=== PATIENT | male | born 1960 | race African-American/Black ===

== ENCOUNTER → 2016-05-26 | Outpatient (CLI) | payer OTHER ==
[2014-01-01 09:45] VITALS: BP 172/92
[~2016-05-26] MED LIST: DIAZ5TAB4 PO; HYDR-2762 PO; MULT1TAB52 PO
[2016-05-26] MEDS: GADOBUTROL 7.5 MMOL/7.5 ML VIAL IV ONE (10:36)
--- NOTE | 2016-05-26 10:55 | RAD ---
PROCEDURE MRI lumbar spine without and with contrast. HISTORY Low back pain with left leg radiculopathy for 2 months, post fall, previous fusion TECHNIQUE Multiplanar, multi sequential, pre and post contrast MR imaging was performed of the lumbar spine. Contrast: 7.5 cc Gadavist COMPARISON None FINDINGS Lumbar vertebral body stature and AP alignment are maintained. There is interbody graft at L4-5. There has been posterolateral fusion at L4-5 with bilateral pedicle screws stabilizing vertical rods. Exam does not accurately evaluate integrity of hardware. Conus terminates at L1. There is no nodular enhancement of the conus or cauda equina, no enhancement in the intervertebral disc spaces. There is mild to moderate degenerative disc disease L2-3, minimally at L3-4 and L1-2. There is probable retroaortic left renal vein, not fully included. L2-3: There is negligible posterior bulge. There is posterior annular tear. There is mild facet hypertrophic change. There is mild lateral recess stenosis bilaterally. Neural foramina are adequate. L3-4: There is negligible disc osteophyte complex and bulge. There is mild facet hypertrophic change. There is very mild narrowing of the far lateral recesses bilaterally. There is mild narrowing of the right neural foramen, left neural foramen adequate. L4-5: There has been posterior decompression, spinal canal widely patent. Neural foramina are adequate. L5-S1: There is negligible disc osteophyte complex greater in the inferior left neural foramen. Spinal canal is adequate. There is likely mild to moderate narrowing of the left neural foramen, right neural foramen adequate. IMPRESSION 1. There is mild lateral recess stenosis bilaterally at L2-3, to a lesser degree at L3-4. There has been posterolateral fusion and posterior decompression at L4-5, interbody graft at this level. 2. There is mild to moderate narrowing of the left L5-S1 neural foramen, mild narrowing on the right at L3-4. 3. There is mild to moderate degenerative disc disease at L2-3, minimally at L1-2 and L3-4. Electronically signed by: Jesse Mazariegos MD (May 26, 2016 10:54:00)
== END | disposition home or self-care (01) ==
LOC: MRI 09:44
PROVIDERS: ATTEND Family Medicine
DX: M54.40 Lumbago with sciatica, unspecified side (principal); M51.36 Other intervertebral disc degeneration, lumbar region; M48.07 Spinal stenosis, lumbosacral region; Z98.1 Arthrodesis status; F17.200 Nicotine dependence, unspecified, uncomplicated
CPT/HCPCS: 72158; A9585

== ENCOUNTER → 2016-06-24 | Outpatient (CLI) | payer MEDICARE, OTHER ==
[2014-01-01 09:45] VITALS: BP 172/92
[~2016-06-24] MED LIST changes: +IOHEXOL 180 MG/ML 10 ML VIAL. ONE; +TRAV5DRO EACHEYE; +methylPREDNISolone ACETATE 40 MG/ML VIAL. ONE; +methylPREDNISolone ACETATE 80 MG/ML VIAL. ONE
--- NOTE | 2016-06-25 05:04 | PAIN ---
DATE OF SERVICE: 06/24/2016 INITIAL CONSULTATION FOR PAIN CLINIC CHIEF COMPLAINT: Low back and right lower extremity pain. HISTORY OF PRESENT ILLNESS: This is a 56-year-old male who presents with history of pain in the low back, right lower extremity across the low back for many years, about 7 years or so, worse over the past 6 months without any recent injury or action that he is aware of. The patient has had previous lumbar fusion at L4-L5 in 2003, reports that he never recovered from the pain even after the surgery. The patient reports now that his pain is constant, sharp, stabbing, shooting, radiating to the right leg, intermittent in intensity, but always present, aching, cramping, changing with activity. The patient reports he actually feels better standing than sitting and is not able to sleep all at night because of the pain is constant with tossing and turning. The patient reports pain across the low back into the right posterior gluteus, posterior thigh, posterior knee, posterior calf, causing cramping as well as some on the anterior calf and anterior thigh, but mostly posteriorly. The patient reports it awakens him from sleep at least 3 times at night. He constantly tosses and turns. He reports that it affects his bowel and bladder control, but no incontinence. He reports he has some increased urgency. The patient reports it affects his ability to walk significantly unless he is not using any assistive devices to ambulate at this time. The patient has had physical therapy. He has had previous injections in his back as well as doing exercise, which he is currently doing right now, which is not helping the pain significantly. The patient has been taking diazepam, gabapentin and hydrocodone. Gabapentin and hydrocodone did decreased the pain, but only by about 20-30% by his estimation. The patient did have an MRI scan of the lumbar spine dated 05/26/2016, showing a mild lateral recess stenosis bilaterally at L2-L3 and a lesser degree at L3-L4 with posterior lateral fusion and posterior decompression at L4-L5, interbody graft at this level, mild to moderate narrowing at the left L5-S1 neural foramen and narrowing at the right at L3-L4, mild to moderate degenerative disk disease at L2-L3 and minimally at L1-L2 and L3-L4. The patient rates his disability range 0-10, 10 being the worst, is a 10 with family and home responsibilities, recreation, social activity, occupation, 8 with sexual behavior and self-care and 0 with life support activities. PAST MEDICAL HISTORY: Significant for arthritis, hiatal hernia, cigarette smoking about less than 1 pack a day for 20 years. PREVIOUS SURGERY: Include lumbar fusion and instrumentation in 2003. CURRENT MEDICATIONS: Include hydrocodone, Travatan and diazepam. ALLERGIES: THE PATIENT IS ALLERGIC TO PENICILLIN. FAMILY HISTORY: Significant for hypertension, diabetes, lupus and cancers. SOCIAL HISTORY: The patient does not drink, does smoke less than 1 pack a day for the past 20 years of cigarettes, is and lives with his spouse and 2 children at home, lives locally in [place], [place], is currently is disabled secondary to his back pain. REVIEW OF SYSTEMS: The patient's review of systems is positive for those items mentioned in history of present illness. All systems reviewed and otherwise negative. It is complete, full and well documented on the patient's chart. PHYSICAL EXAMINATION: VITAL SIGNS: The patient's blood pressure 111/64, pulse 72, respirations 18, temperature is 97.8 degrees Fahrenheit, height 6 feet 3 inches, weighs 171 pounds. GENERAL: The patient is awake, alert, oriented, appropriate, very pleasant demeanor. HEENT: Head shows normocephalic, atraumatic. Extraocular movements are intact, symmetrical. Oral cavity, mucous membranes are moist and pink. Dentition is intact. NECK: Shows anterior throat supple without palpable lymphadenopathy noted. Swallow reflex is symmetrical. CHEST: Shows normal on inspection. Breath sounds clear to auscultation bilaterally. HEART: Shows S1 and S2 clear. ABDOMEN: Flat, soft, nontender, nondistended. No palpable organomegaly. No rebound or guarding demonstrated. BACK: Shows spine grossly in the midline. Normal appearing thoracic kyphosis, some significant flattening noted in the lumbar lordotic curvature with well-healed surgical scar in the midline. Lumbar paraspinous musculature shows symmetrical inspection with palpation is very firm, very tender throughout the upper, middle and lower distribution of paraspinous muscles bilaterally, but appears symmetrical, no significant tenderness over the spinous processes, sacrum or sacroiliac regions. The patient has limited rotational motion of the lumbar spine, but rotates to 10 degrees right and left as well as extension 10 degrees, forward flexion at approximately 35 degrees without limitation from pain but with significant limitation ____ unable to forward flex secondary to low back immobility. Lower extremities showed deep tendon reflexes at 1+ in the patellar and tendo calcaneus tendons are equal. Motor exam is approximately 4 on a scale of 5 dorsiflexion and extension, but symmetrical, as is quadriceps and hamstring flexion 4/5 and equal. Peripheral pulses are 1+ posterior tibial and dorsalis pedis pulses. No peripheral edema is noted. No clubbing, no cyanosis. Lower extremities are warm and dry to touch, equal in color and appearance. Straight leg raise noted to be positive on the right at about 35 degrees, left is negative. Gaenslen's and Wander's maneuvers are grossly negative bilaterally. The patient is able to stand, has difficulty raising from a sitting to a standing position with significant pain across the low back into the right posterior gluteus and thigh. The patient is walking with a shuffling gait, appears to favor the right lower extremity with a significant limp as well, again not using any assistive devices to ambulate such as canes or walkers. IMPRESSION: This is a 56-year-old male with: 1. Long history of low back, right lower extremity pain status post lumbar instrumentation fusion at L4-L5 with interbody fusion as well. 2. MRI scan of lumbar spine as noted. 3. Cigarette smoking. 4. Arthritis. PLAN: Options were discussed with the patient including conservative medical management, physical therapy, interventional techniques. We will send him for physical therapy with water pool therapy as he has not performed this before and I feel this may be significantly beneficial for him. Also discussed a caudal approach epidural steroid injection and he would like to proceed with that today. We described the procedure using description as well as anatomical models. Risks were then discussed including, but not limited to bleeding, infection, possibility of epidural hematoma and subsequent neurologic compromise, dural puncture, headaches, spinal cord and/or nerve damage, side effects of steroid medication and poor results regarding pain control. The patient understands and wishes to proceed. The patient will return to clinic in approximately 2 weeks for followup. He was counseled to return appointment, activity level and side effects to be aware of. DIAGNOSES: Lumbar radiculopathy with lumbar degenerative disk disease, spinal stenosis and post-lumbar laminectomy syndrome. PROCEDURE: Caudal approach epidural steroid injection using C-arm fluoroscopic guidance under sterile prep and drape using local anesthetic. Medication injected is 120 mg Depo-Medrol plus 10 mL preservative-free normal saline and 2 mL Isovue for contrast. CONDITION AT DISCHARGE: Stable. The patient tolerated procedure well, had no complications. DANO ORTIZ MD DR: SHANNON/deonte JOB#: [id number] / [id number]
== END | disposition home or self-care (01) ==
LOC: PNCL 10:09
PROVIDERS: ATTEND Anesthesiology
DX: M51.16 Intervertebral disc disorders with radiculopathy, lumbar region (principal); M48.06 Spinal stenosis, lumbar region; M96.1 Postlaminectomy syndrome, not elsewhere classified; M19.90 Unspecified osteoarthritis, unspecified site; F17.200 Nicotine dependence, unspecified, uncomplicated; Z72.89 Other problems related to lifestyle
CPT/HCPCS: 62323; J1030; J1040

== ENCOUNTER → 2016-09-16 | Outpatient (CLI) | payer OTHER ==
[2014-01-01 09:45] VITALS: BP 172/92
[~2016-09-16] MED LIST changes: -IOHEXOL 180 MG/ML 10 ML VIAL. ONE; -methylPREDNISolone ACETATE 40 MG/ML VIAL. ONE; -methylPREDNISolone ACETATE 80 MG/ML VIAL. ONE
[2016-09-16] MEDS: IOHEXOL 180 MG/ML 10 ML VIAL. IT ONE (09:45)
[2016-09-16] MEDS: LIDOCAINE 1% Multi-Dose 20 ML VIAL. ID ONE (09:45)
--- NOTE | 2016-09-16 10:49 | KCIC ---
EXAM: 1. CT myelography lumbar spine with intrathecal contrast. 2. Fluoroscopically guided lumbar puncture for administration of myelographic contrast. HISTORY: Low back pain radiating to right lower extremity. Prior lumbar fusion. TECHNIQUE: The procedure along with its risks and benefits were explained to the patient. He agreed to proceed. A timeout procedure was performed. The laminectomy defect at L4 was visualized fluoroscopically. The overlying skin was sterilely prepped and infiltrated with one percent lidocaine for local anesthesia. Under fluoroscopic guidance, a 22-gauge spinal needle was advanced into the thecal sac. There was spontaneous return of clear cerebrospinal fluid. 10 mL of intrathecal iodinated contrast were instilled under fluoroscopic control. Instrumentation was withdrawn and a sterile dressing placed. There were no immediate complications. 8 fluoroscopic images of the lumbar spine were obtained. Fluoroscopy time [address] of the lumbar spine was performed after the intrathecal administration of iodinated contrast. COMPARISON: MRI, May 26, 2016. FINDINGS: Bilateral pedicle screws are fixed by vertical rods at L4-5. There is no periprosthetic lucency. There are also changes of discectomy and interbody grafting at this level. L4 laminectomies and resection of the inferior articular processes are also noted. Alignment is normal. No fractures are identified. Degenerative disc disease is moderate at L2-3 and mild at L1-2 and L4-5. The conus is at L1 and appears normal. At L1-2, there is a small posterior disc bulge. Facet and ligamentum flavum hypertrophy is mild. There is mild impression on the thecal sac. There is no clear neural foraminal stenosis. At L2-3, there is a moderate posterior disc bulge with a superimposed moderate to large central and right paracentral disc protrusion. It measures 7 mm anteroposteriorly and results in moderate to severe central canal stenosis. The right lateral recess is more severely narrowed, with mass effect on multiple right-sided nerve roots. The degree of stenosis appears to have increased since May 26, 2016. There is mild bilateral neural foraminal narrowing. At L3-4, there is a small posterior disc bulge. Facet hypertrophy is moderate bilaterally, resulting in mild central canal stenosis. Neural foraminal stenosis is mild to moderate bilaterally. A lateral component to the disc bulge exerts mild mass effect on the left greater than right L3 nerve root lateral to the foramina. At L4-5, the central canal and neural foramina are decompressed. L5-S1, there is a small posterior disc bulge. There is mild neural foraminal narrowing on the left. IMPRESSION: 1. At L2-3, a moderate posterior disc bulge with a superimposed moderate to large right paracentral superior extrusion results in moderate to severe central canal stenosis with more severe narrowing of the right lateral recess. This appears to have progressed since May 26, 2016. 2. Neural foraminal stenosis is mild mostly from facet hypertrophy at L3-4. Neural foraminal stenosis is mild to moderate bilaterally at this level. 3. Additional foraminal narrowing is mild as detailed above. 4. Degenerative disc disease is moderate at L2-3 and mild at L1-2 and L3-4. 5. Instrumented anterior and posterior fusion at L4-5 with laminectomies and resection of the L4 inferior articular processes. *One or more of the following individualized dose reduction techniques were utilized for this examination: 1. Automated exposure control. 2. Adjustment of the mA and/or kV according to patient size. 3. Use of iterative reconstruction technique. Electronically signed by: Xavier Edouard MD (09/16/2016 10:45 AM) [id number]
== END | disposition home or self-care (01) ==
LOC: KCIC 08:54
PROVIDERS: ATTEND Neurological Surgery
DX: M48.06 Spinal stenosis, lumbar region (principal); M51.26 Other intervertebral disc displacement, lumbar region; M51.36 Other intervertebral disc degeneration, lumbar region; Z98.1 Arthrodesis status
CPT/HCPCS: 72132; 72265

== ENCOUNTER → 2016-11-24 | Outpatient (CLI) | payer OTHER ==
[2014-01-01 09:45] VITALS: BP 172/92
--- NOTE | 2016-11-24 10:50 | RAD ---
Indication abnormal thyroid function tests. Grayscale imaging targeted to the thyroid was performed. No prior imaging of the thyroid is available. The right lobe of the thyroid measures 6 x 1.7 x 2.5 cm. The right lobe has a heterogeneous appearance but no dominant mass is seen. The isthmus is slightly enlarged and has a heterogeneous appearance but again no mass is seen. The left lobe of the thyroid measures 5.5 x 2 x 1.9 cm. It too has a heterogeneous appearance but no dominant mass is seen. IMPRESSION: Mildly enlarged thyroid. The thyroid has a heterogeneous appearance but no dominant mass is seen in the isthmus or either lobe of the thyroid.
== END | disposition home or self-care (01) ==
LOC: US 10:29
PROVIDERS: ATTEND Family Medicine
DX: E04.9 Nontoxic goiter, unspecified (principal); R94.6 Abnormal results of thyroid function studies
CPT/HCPCS: 76536

== ENCOUNTER → 2017-05-18 | Outpatient (CLI) | payer OTHER | END | disposition home or self-care (01) | LOC: US 07:35 | DX: E05.90 Thyrotoxicosis, unspecified without thyrotoxic crisis or storm (principal); E04.8 Other specified nontoxic goiter | CPT/HCPCS: 76536 ==

== ENCOUNTER → 2017-08-28 | Outpatient (CLI) | payer OTHER, MEDICAID ==
[2017-08-28] MEDS: IOHEXOL 300 MG/ML 100ML VIAL. IV (10:58)
[2017-08-28] MEDS: IOHEXOL 240 MG/ML 50ML VIAL. PO (10:58)
== END | disposition home or self-care (01) ==
LOC: CT 09:18
DX: N40.0 Benign prostatic hyperplasia without lower urinary tract symptoms (principal); I74.5 Embolism and thrombosis of iliac artery
CPT/HCPCS: 74170; Q9966; Q9967

== ENCOUNTER → 2017-10-11 | Outpatient (CLI) | payer OTHER ==
[~2017-10-11] MED LIST changes: -DIAZ5TAB4 PO; -HYDR-2762 PO; +IOHEXOL 180 MG/ML 10 ML VIAL.; +LIDOCAINE 2% PF 2ML VIAL.; -MULT1TAB52 PO; -TRAV5DRO EACHEYE; +methylPREDNISolone ACETATE 40 MG/ML VIAL.; +methylPREDNISolone ACETATE 80 MG/ML VIAL.
== END | disposition home or self-care (01) ==
LOC: PNCL 09:04
DX: M51.16 Intervertebral disc disorders with radiculopathy, lumbar region (principal); M48.061 Spinal stenosis, lumbar region without neurogenic claudication; M96.1 Postlaminectomy syndrome, not elsewhere classified; M50.10 Cervical disc disorder with radiculopathy, unspecified cervical region; M19.90 Unspecified osteoarthritis, unspecified site; Z72.89 Other problems related to lifestyle; Z72.0 Tobacco use; Z88.0 Allergy status to penicillin; Z79.899 Other long term (current) drug therapy
CPT/HCPCS: 62323; J1030; J1040; J2001; Q9965

== ENCOUNTER → 2017-11-14 | Outpatient (CLI) | payer OTHER ==
[2014-01-01 09:45] VITALS: BP 172/92
[~2017-11-14] MED LIST changes: +DIAZ5TAB4 PO; +HYDR-2762 PO; -IOHEXOL 180 MG/ML 10 ML VIAL.; -LIDOCAINE 2% PF 2ML VIAL.; +MULT1TAB52 PO; +TRAV5DRO EACHEYE; -methylPREDNISolone ACETATE 40 MG/ML VIAL.; -methylPREDNISolone ACETATE 80 MG/ML VIAL.; +thyroid med
--- NOTE | 2017-11-14 20:22 | PAIN ---
DATE OF SERVICE: 11/14/2017 PROGRESS NOTE FOR PAIN CLINIC DIAGNOSIS: Lumbar radiculopathy with lumbar degenerative disk disease, lumbar spinal stenosis and post-lumbar laminectomy syndrome. HISTORY OF PRESENT ILLNESS: The patient is a 57-year-old male who returns for followup status post caudal epidural steroid injections x 2. The patient reports minimal decrease in pain after each injection and lasting only for a day or two. The patient reports still significant pain in the low back and bilateral lower extremities as it was previously, radiating, worse with activity, standing, walking and changing positions, right side greater than left. The patient reports it is a 10 on a scale of 10 at its worst, 10 on average and 7 at its least and is a 10 today. The patient reports it is aching, sharp, dull, shooting, cramping, radiating, becoming more unbearable, awaken him from sleep at night. The patient reports he is unable to participate in his physical therapy activities. We had ordered some water therapy form because the pain is too great. The patient reports no new motor or sensory deficits and no new bowel or bladder incontinence, but still significant pain with all standing, walking and changing positions and difficulty sleeping. PHYSICAL EXAMINATION: VITAL SIGNS: The patient's blood pressure is 126/72, pulse , respirations 18, temperature 97.6 degrees Fahrenheit, height is 6 feet 3 inches, weight is 173 pounds. GENERAL: The patient is awake, alert, oriented, appropriate, has very pleasant demeanor. HEENT: Head shows normocephalic, atraumatic. Extraocular movements are intact and symmetrical. Oral cavity: Mucous membranes are moist and pink. Dentition is intact. NECK: Shows anterior throat supple without palpable lymphadenopathy noted. Swallow reflex is symmetrical. CHEST: Shows normal on inspection. Breath sounds are clear to auscultation bilaterally. HEART: Shows S1, S2 clear. No murmurs auscultated. ABDOMEN: Soft, nontender, nondistended. No palpable organomegaly is noted. No rebound or guarding demonstrated. BACK: Shows spine grossly in the midline. The patient's lumbar paraspinous muscle shows symmetrical, but with significant scarring from previous surgery noted. EXTREMITIES: The patient's lower extremities show deep tendon reflexes at 1+ in the patella and tendo calcaneus tendons. Motor exam is approximately 4 on a scale of 5, but equal and symmetrical. Peripheral pulses are 1+ posterior tibia. No peripheral edema is noted. Options were discussed with the patient. The patient's old chart was reviewed as his current medication regimen updated. Current review of systems updated today as well. We will hold on any further injections as the patient is not getting significant relief with these. He does have an appointment for neurosurgical evaluation in about 1 week. We discussed a Medrol Dosepak. We will try this in the meantime to see if this may afford him some decrease in pain prior to his neurosurgical evaluation. The patient will follow up at this time on an as needed basis, was given instructions as well as side effects to be aware of with the medication. DANO ORTIZ MD DR: SHANNON/deonte JOB#: [id number] / [id number]
== END | disposition home or self-care (01) ==
LOC: PNCL 09:30
PROVIDERS: ATTEND Anesthesiology
DX: M51.16 Intervertebral disc disorders with radiculopathy, lumbar region (principal); M48.061 Spinal stenosis, lumbar region without neurogenic claudication; Z88.0 Allergy status to penicillin
CPT/HCPCS: 99212

== ENCOUNTER → 2017-11-24 | Outpatient (CLI) | payer OTHER ==
[2014-01-01 09:45] VITALS: BP 172/92
--- NOTE | 2017-11-24 14:38 | RAD ---
EXAMINATION: Magnetic resonance imaging (MRI) of the lumbar spine without contrast 11/24/2017 1:00 PM HISTORY: Worsening chronic low back pain with bilateral leg radiculopathy. History of lumbar fusion in 2006. TECHNIQUE: Multiplanar multi-weighted MRI of the lumbar spine was performed without intravenous contrast using the standard lumbar spine protocol. Contrast information: None administered. COMPARISON: CT lumbar spine September 16, 2016, MRI lumbar spine May 26, 2016 FINDINGS: There is straightening of the normal lumbar lordosis. Sagittal alignment is otherwise maintained. Vertebral body heights are maintained. There is posterior and interbody fusion at L4-L5. Laminectomy changes are identified at this level. There is mild disc height loss at all levels of lumbar spine, sparing L5-S1. There is mild disc desiccation at all levels of the lumbar spine sparing L5-S1. 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 No suspicious retroperitoneal abnormality is visualized. Abdominal aorta is normal in caliber. L2-L3: There is a circumferential disc bulge. There is a central disc extrusion which appear stable. There is mild to moderate facet arthropathy with ligamentum flavum infolding. There is moderate bilateral neuroforaminal stenosis. There is moderate spinal canal stenosis. L3-L4: There is a mild circumferential disc bulge. There is moderate facet arthropathy with ligamentum flavum infolding. There is stable severe right and moderate left neuroforaminal stenosis. There is mild spinal canal stenosis. L4-L5: This level is fused and decompressed. No residual neuroforaminal or spinal canal stenosis is identified. L5-S1: Disc is normal in configuration. There is moderate facet arthropathy. There is mild bilateral neuroforaminal stenosis. No spinal canal stenosis. IMPRESSION: Postoperative changes are identified from posterior and interbody fusion as well as lumbar decompression at L4-L5. No residual neuroforaminal or spinal canal stenosis is identified. Mild degenerative changes centered at L2-L3 and L3-L4 are noted, as detailed above. Findings are not significantly changed since May 26, 2016. Electronically signed by: Yue Boone MD (11/24/2017 2:35 PM) [id number]
== END | disposition home or self-care (01) ==
LOC: MRI 12:43 → EDBD 12:43
PROVIDERS: ATTEND Family Medicine
DX: M47.896 Other spondylosis, lumbar region (principal); M48.061 Spinal stenosis, lumbar region without neurogenic claudication; M48.07 Spinal stenosis, lumbosacral region; G89.29 Other chronic pain; Z98.890 Other specified postprocedural states; Z88.0 Allergy status to penicillin
CPT/HCPCS: 72148

== ENCOUNTER 2018-05-03 07:04 | Outpatient (CLI) | payer OTHER ==
[2018-05-03] VITALS (12 sets, daily range): BP systolic 128–175; BP diastolic 74–93
[~2018-05-03] VITALS: Ht 190.5 cm; Wt 81.6 kg
[~2018-05-03 07:04] MED LIST changes: -HYDR-2762 PO; +HYDR-2765 PO
[2018-05-03 07:34] LABS: BASO # 0.1 x10^3/uL (0.0-0.2); BASO % 1 % (0-3); EOS % 0 % (0-3); HEMATOCRIT 43.1 % (39.0-53.0); HEMOGLOBIN 14.4 g/dL (13.0-17.5); LYMPH # 1.2 x10^3/uL (1.0-4.8); LYMPH % 18 % (24-48); MEAN CORPUSCULAR HEMOGLOBIN 30 pg (25-35); MEAN CORPUSCULAR HGB CONC 34 g/dL (31-37); MEAN CORPUSCULAR VOLUME 88 fL (79-100); MONO # 0.1 x10^3/uL (0.0-1.1); MONO % 1 % (0-9); NEUT # 5.4 x10^3uL (1.8-7.7); NEUT % 80 % (31-73); PLATELET COUNT 182 x10^3/uL (140-400); RED BLOOD COUNT 4.88 x10^6/uL (4.30-5.70); RED CELL DISTRIBUTION WIDTH 13.9 % (11.5-14.5); WHITE BLOOD COUNT 6.7 x10^3/uL (4.0-11.0)
[2018-05-03] MEDS ORDERED: diphenhydrAMINE HCL 25 MG CAPSULE PO ONE ×2 (07:42→07:45)
[2018-05-03 07:43] LABS: PROTHROMBIN TIME PATIENT 13.1 SEC (11.7-14.0)
[2018-05-03] MEDS ORDERED: predniSONE 10 MG TABLET PO ONE (07:45)
[2018-05-03] MEDS ORDERED: fentaNYL PF VIAL 250 MCG/5 ML VIAL ONE (07:54)
[2018-05-03] MEDS ORDERED: HEPARIN for IV BOLUS 10,000 UNIT/10 ML VIAL. ONE (07:54)
[2018-05-03] MEDS ORDERED: MIDAZOLAM HCL/PF 5 MG/5 ML VIAL. ONE (07:54)
[2018-05-03 07:55] LABS: CALCIUM 9.5 mg/dL (8.5-10.1); CREATININE 1.1 mg/dL (0.7-1.3); GFR 84.1; POTASSIUM 4.3 mmol/L (3.5-5.1)
[2018-05-03] MEDS ORDERED: IODIXANOL 320 MG/ML 100 ML VIAL. ONE (07:57)
[2018-05-03] MEDS ORDERED: LIDOCAINE WITH 8.4% SOD BICARB 3 ML DISP.SYRIN. ONE (07:58)
[2018-05-03] MEDS ORDERED: IODIXANOL 320 MG/ML 100 ML VIAL. IART ONE (09:00)
[2018-05-03] MEDS ORDERED: MIDAZOLAM HCL/PF 5 MG/5 ML VIAL. IV ONE (09:00)
[2018-05-03] MEDS ORDERED: LIDOCAINE WITH 8.4% SOD BICARB 3 ML DISP.SYRIN. IJ ONE (09:00)
[2018-05-03] MEDS ORDERED: fentaNYL PF VIAL 250 MCG/5 ML VIAL IV ONE (09:00)
[2018-05-03] MEDS ORDERED: HEPARIN for IV BOLUS 10,000 UNIT/10 ML VIAL. IV ONE (09:00)
--- NOTE | 2018-05-03 09:11 | NUR ---
Patient reports taking Prednisone as prescribed last night and this morning before arrival for pre-treatment of contrast allergy. Patient received Prednisone and Benadryl upon arrival to outpatient. Patient continues to be monitored throughout case for signs and symptoms of reaction to contrast.
[2018-05-03] MEDS ORDERED: CONTRAST GIVEN. MC PRN (09:30)
[2018-05-03] MEDS ORDERED: IODIXANOL 320 MG/ML 50ML VIAL. ONE (09:49)
[2018-05-03] MEDS ORDERED: CLOPIDOGREL BISULFATE 75 MG TABLET ONE (10:13)
[2018-05-03] MEDS ORDERED: CLOPIDOGREL BISULFATE 75 MG TABLET PO ONE ×2 (10:15→10:45)
--- NOTE | 2018-05-03 10:27 | PDOC ---
MODERATE SEDATION ASSESSMENT RISKS/ALTERNATIVES Risks/Alternatives Risks and alternatives of this type of sedation and procedure discussed with: RISK/ALTERNATIVES: Patient H & P ON CHART H & P H & P on chart and reviewed for co-morbid conditions and appropriate labs. H&P ON CHART: Yes STATUS PREG STATUS ASSESSED: Yes MEDS/ALLERGIES REVIEWED Meds/Allergies Reviewed Medications and Allergies including time and route of recently administered narcotics and sedatives. MEDS/ALLERGIES REVIEWED: Yes ASA RATING ASA RATING: II AIRWAY ASSESSMENT Airway Assessment Airway patency, oral function limitations, presence of caps, crowns, dentures, partials, and ability to extend neck assessed. AIRWAY ASSESSMENT: Yes MALLAMPATI SCORE MALLAMPATI SCORE: II PRE-SEDATION ASSESSMENT PRE-SEDATION ASSESSMENT: Yes STALIN KINNEY MD May 03, 2018 10:27
--- NOTE | 2018-05-03 10:29 | PDOC ---
BRIEF OPERATIVE NOTE Pre-Op Diagnosis PAD Post-Op Diagnosis same Procedure Performed Aortogram and bilateral le runoffs and left EIA stent Surgeon [place] Anesthesia Type: Conscious Sedation Findings occluded left IIA with compensatory cross pelvic flow from a widely patent right IIA. Attempts to recanalize the left IIA were unsuccessful. Severe left EIA stenosis successfully treated with primary stenting to 8mm Complications No immediate STALIN KINNEY MD May 03, 2018 10:29
--- NOTE | 2018-05-03 10:32 | PDOC1 ---
History and Physical Date of Procedure Date of Admission History of Present Illness Reason for Visit Adult male with PAD and progressive pelvic and lower extremity leg pain over the past five to ten years. Pain is atypical, often occurring at rest, occasionally associated with extremity swelling, and often involving the groin(s ) and thighs. Patient complains of impotence for the past five years as well. 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 Past Medical History Past Medical History See nursing pre-op assessment Current Medications Current Medications Current Medications Prednisone (Prednisone) 50 mg 1X ONCE PO Last administered on 05/03/18at 07:45 ; Start 05/03/18 at 07:45; Stop 05/03/18 at 07:46; Status DC Diphenhydramine HCl (Benadryl) 50 mg 1X ONCE PO Last administered on at 07:45; Start 05/03/18 at 07:45; Stop 05/03/18 at 07:46; Status DC Diphenhydramine HCl (Benadryl) 25 mg STK-MED ONCE PO ; Start 05/03/18 at 07:42; Stop 05/03/18 at 07:43; Status DC Midazolam HCl (Versed) 5 mg STK-MED ONCE .ROUTE ; Start 05/03/18 at 07:54; Stop 05/03/18 at 07:55; Status DC Fentanyl Citrate (Fentanyl 5ml Vial) 250 mcg STK-MED ONCE .ROUTE ; Start at 07:54; Stop 05/03/18 at 07:55; Status DC Heparin Sodium (Porcine) (Heparin Sodium) 10,000 unit STK-MED ONCE .ROUTE ; Start 05/03/18 at 07:54; Stop 05/03/18 at 07:55; Status DC Iodixanol (Visipaque 320) 100 ml STK-MED ONCE .ROUTE ; Start 05/03/18 at 07:57; Stop 05/03/18 at 07:58; Status DC Lidocaine/Sodium Bicarbonate (Buffered Lidocaine 1%) 3 ml STK-MED ONCE .ROUTE ; Start 05/03/18 at 07:58; Stop 05/03/18 at 07:59; Status DC Heparin Sodium/ Sodium Chloride 1,000 ml @ As Directed STK-MED ONCE .ROUTE ; Start 05/03/18 at 07:58; Stop 05/03/18 at 07:59; Status DC Heparin Sodium/ Sodium Chloride (HEPARIN for ARTERIAL LINE FLUSH) 1,000 unit 1X ONCE IART Last administered on 05/03/18at 09:00; Start 05/03/18 at 09:00; Stop 05/03/18 at 09:07; Status DC Lidocaine/Sodium Bicarbonate (Buffered Lidocaine 1%) 3 ml 1X ONCE IJ Last administered on 05/03/18at 09:00; Start 05/03/18 at 09:00; Stop 05/03/18 at 09:08 ; Status DC Midazolam HCl (Versed) 5 mg 1X ONCE IV Last administered on 05/03/18at 09:00; Start 05/03/18 at 09:00; Stop 05/03/18 at 09:08; Status DC Fentanyl Citrate (Fentanyl 5ml Vial) 250 mcg 1X ONCE IV Last administered on at 09:00; Start 05/03/18 at 09:00; Stop 05/03/18 at 09:07; Status DC Iodixanol (Visipaque 320) 100 ml 1X ONCE IART Last administered on 05/03/18at 09:00; Start 05/03/18 at 09:00; Stop 05/03/18 at 09:19; Status DC Heparin Sodium (Porcine) (Heparin Sodium) 5,000 unit 1X ONCE IV Last administered on 05/03/18at 09:00; Start 05/03/18 at 09:00; Stop 05/03/18 at 09:08 ; Status DC Info (CONTRAST GIVEN -- Rx MONITORING) 1 each PRN DAILY PRN MC SEE COMMENTS; Start 05/03/18 at 09:30; Stop 05/05/18 at 09:29 Iodixanol (Visipaque 320) 50 ml STK-MED ONCE .ROUTE ; Start 05/03/18 at 09:49; Stop 05/03/18 at 09:50; Status DC Clopidogrel Bisulfate (Plavix) 300 mg 1X ONCE PO ; Start 05/03/18 at 10:15; Stop 05/03/18 at 10:16; Status DC Clopidogrel Bisulfate (Plavix) 75 mg STK-MED ONCE .ROUTE ; Start 05/03/18 at 10: 13; Stop 05/03/18 at 10:14; Status DC Active Scripts Active Reported Travatan Z (Travoprost) 5 Ml Drops 1 Drop EACHEYE QHS Allergies Allergies: Coded Allergies: Iodinated Contrast- Oral and IV Dye (Verified Allergy, Intermediate, rash all over, 01/10/18) Penicillins (Verified Allergy, Intermediate, Hives, 01/01/14) Physical Exam Vital Signs Vital Signs Date Time Temp Pulse Resp B/P (MAP) Pulse Ox O2 Delivery O2 Flow Rate FiO2 05/03/18 10:17 64 22 100 Nasal Cannula 2.0 05/03/18 07:44 97.7 128/74 (92) 97.7 Other see nursing pre-op assessment Assessment Assessment PAD Plan Plan Angiogram with intervention STALIN KINNEY MD May 03, 2018 10:32
[2018-05-03] MEDS ORDERED: ACETAMINOPHEN 500 MG TABLET PO ONE (12:15)
[2018-05-03] MEDS ORDERED: ASPI-630 PO (12:17)
[2018-05-03] MEDS ORDERED: CLOP75TA PO (12:18)
[2018-05-03] MEDS ORDERED: ACETAMINOPHEN 325 MG TABLET. PO ONE ×2 (12:19→12:30)
--- NOTE | 2018-05-03 12:39 | NUR ---
Patient complains of pain/discomfort in his right groin. Site is firm but no bleeding noted. Dr. Putnam explained to the patient that he will be sore for a few days and to take his Plavix, a baby aspirin, and tylenol or motrin for pain/discomfort. Script given to patient for his Plavix by Dr. Putnam. Patient took a dose of Tylenol po and has an icepack to his right groin site, will continue to monitor.
--- NOTE | 2018-05-03 13:12 | RAD ---
Procedure: Aortogram, bilateral lower extremity runoffs, left external iliac artery stent placement Clinical Indication: 57-year-old male with known peripheral arterial disease and aggressive bilateral large to be pain over the past several years. Pain is variably described as activity related or occurring at rest. Pain is also somewhat atypical in the it involves primarily the groin and thighs. Patient also complains of impotence over the past several years. No nonhealing wounds in the lower extremities. Patient had a CTA of the abdomen and pelvis in November 30, 2017 which did show a high-grade stenosis of the left external iliac artery as well as subtotal or total occlusion of the left internal iliac artery. Sedation: Conscious sedation was administered with a total intraprocedural [id number] time of 110 minutes. The patient was monitored by a qualified independent observer throughout the time of sedation. Please refer to the medical record for exact doses of medications utilized to achieve moderate sedation. Antibiotics: None Exposure: Kerma-Area Product: 361 Gycm2 Contrast: 90 cc of Visipaque 320 contrast media Sterility: All elements of maximal sterile barrier technique including the use of a cap, mask, sterile gown, sterile gloves, large sterile sheet, appropriate hand hygiene, and 2% chlorhexidine for cutaneous antisepsis (or acceptable alternative antiseptic per current guidelines) were followed for this procedure. If ultrasound guidance was utilized, sterile ultrasound techniques were followed including use of a sterile probe cover. Consent: The procedure was explained in its entirety to the patient or the patients designated abrasives sales representative by a member of the treatment team, including a discussion of the risks, benefits and commonly accepted alternatives to the procedure, as well as the expected consequences of no therapy whatsoever. Discussion of the risks included, but was not limited to, those that are most frequent and those that are rare but possibly severe or life-threatening, as well as the possibility of unforeseen complications. Technique and Findings: Following informed consent, the patient was prepped and draped in usual sterile fashion. Ultrasound interrogation of the right groin revealed patency of the right common femoral artery. A Hardcopy ultrasound image was recorded. As a 21-gauge micropuncture needle was used to gain access to this vessel. The needle was exchanged over wire for 5 Cuban sheath. A flush catheter was advanced in the abdominal aorta and contrast aortography was performed. The aorta is widely patent. There is antegrade brisk flow into the celiac, superior mesenteric, and inferior mesenteric arteries. Single bilateral renal arteries are widely patent. The catheter was then retracted to just above the aortic bifurcation and contrast angiography of the pelvis was performed in multiple obliquities. There is mild multifocal atherosclerosis of the iliofemoral arteries. The right internal iliac artery demonstrates mild multifocal atherosclerosis with no clinically significant stenosis. The left internal iliac artery is occluded over approximately 4 cm. There is retrograde flow into the left iliac vessels via collateralization from the right. There is a high-grade stenosis of the proximal left external iliac artery. The patient was then given 5000 units of heparin intravenously. An angled wire was used to cross the aortic bifurcation and the catheter was advanced to the contralateral left common femoral artery. Contrast angiography of the left lower extremity was then performed demonstrating wide patency of the superficial femoral artery, popliteal artery, anterior tibial artery, tibial peroneal trunk, posterior tibial artery, peroneal artery, and dorsalis pedis and posterior tibial arteries of the foot. Flow the small vessels in the mid and forefoot was not interrogated. The 5 Cuban sheath was then exchanged for 6 Cuban sheath, and the flush catheter was exchanged for an angled catheter which was used to probe the internal iliac artery occlusion. Multiple maneuvers were attempted all of which were unsuccessful in achieving recanalization of this vessel. At one juncture, vessel perforation occurred. Upon removal of the wire and catheter, this resolved rapidly and spontaneously. An 8 mm x 39 mm balloon expandable metal stent was then deployed across the external iliac artery stenosis and deployed to full profile. Post deployment angiogram demonstrated excellent radiographic appearance with minimal residual stenosis. The catheter and wire were then removed and the sheath was retracted to the right inferolateral external iliac artery and contrast angiography of the right lower extremity was performed. This demonstrates symmetrical findings to the left, with minimal multifocal atherosclerosis and no hemodynamically significant stenosis in any distribution. Further interrogation of the right internal iliac artery was performed in multiple obliquities confirming wide patency. The sheath was then exchanged for a minx closure device which was successfully utilized to obtain hemostasis. Complications: Wire perforation of the left occluded internal iliac artery. This resolved rapidly and spontaneously without intervention. Impression: 1. 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 This was not successfully recanalized. There is collateral flow to the left internal iliac artery branches via a widely patent right internal iliac artery. 2. High-grade focal stenosis of the proximal left external iliac artery, result status post primary stenting with only mild residual stenosis. ] Recommend dual antiplatelet therapy for 6 weeks followed by monotherapy with baby aspirin for life.
--- NOTE | 2018-05-03 14:02 | NUR ---
Discharge Note: CINDY MITCHELL Discharge instructions and discharge home medications reviewed with Patient and a copy given. All questions have been answered and understanding verbalized. The following instructions and handouts were given: moderate sedation,groin site care, and smoking cessation Discontinued lines and drains: Peripheral IV intact. Patient discharged to Home or Self Care withFamily Membera Wheelchair
== END 2018-05-03 14:00 | disposition home or self-care (01) ==
LOC: INTRAD 07:04 → EDBD 07:04 → INTRAD 14:00
PROVIDERS: ATTEND Surgery
DX: I70.212 Atherosclerosis of native arteries of extremities with intermittent claudication, left leg (principal); Z88.0 Allergy status to penicillin; Z91.041 Radiographic dye allergy status; Z79.899 Other long term (current) drug therapy; Z79.01 Long term (current) use of anticoagulants
CPT/HCPCS: 36415; 37221; 75716; 76937; 80048; 85025; 85610; 85730; 99152; 99153; A4215; C1769; C1892; C1894; J1644; J2250; J3010; J7512; Q0163; Q9967; 75625